=== PATIENT | male | born 2005 | race Caucasian/White ===

== ENCOUNTER 2023-12-02 08:03 | Emergency (ER) | payer OTHER ==
[~2023-12-02] VITALS: Ht 177.8 cm; Wt 61.4 kg
[2023-12-02] MEDS ORDERED: HYDROXYZINE HCL25 M1 PO (08:21)
[2023-12-02] MEDS ORDERED: LISINOPRIL10 MG PO (08:21)
[2023-12-02] MEDS ORDERED: AMOXICILLIN AND1 TAB PO (08:23)
[2023-12-02 08:55] VITALS: BP 130/90
== END 2023-12-02 08:55 | disposition home or self-care (01) ==
LOC: ED 08:03
DX: I10 Essential (primary) hypertension (principal)